=== PATIENT | female | born 1945 | race Caucasian/White ===

== ENCOUNTER → 2017-12-23 | Outpatient (CLI) | payer MEDICARE, OTHER ==
[2014-11-27 04:57] VITALS: BP 168/100
[~2017-12-23] MED LIST: CIPR500T PO; PHEN-318 PO
--- NOTE | 2017-12-23 11:59 | RAD ---
History: Left hip pain, no known injury. M25.552. Comparison: None. Findings: AP following views of the left hip. No acute fracture or dislocation is identified. No significant hip degeneration is seen. Joint space is preserved. Impression: Unremarkable left hip radiographs for age. Electronically signed by: Guido Ellis MD (12/23/2017 11:55 AM) [facility]
== END | disposition home or self-care (01) ==
LOC: PMG 11:22
PROVIDERS: ATTEND Physician Assistant Medical
DX: M25.552 Pain in left hip (principal)
CPT/HCPCS: 73502

== ENCOUNTER 2019-12-12 14:03 | Inpatient (IN) | payer MEDICARE, OTHER ==
[~2019-12-12] VITALS: Ht 165.1 cm; Wt 84.7 kg
--- NOTE | 2019-12-12 14:50 | RAD ---
EXAM: Head CT without contrast. HISTORY: Left-sided facial droop. TECHNIQUE: Computed tomographic images of the head were obtained without contrast. *One or more of the following individualized dose reduction techniques were utilized for this examination: 1. Automated exposure control. 2. Adjustment of the mA and/or kV according to patient size. 3. Use of iterative reconstruction technique. COMPARISON: 08/26/2008. FINDINGS: There is no acute or subacute extra-axial or intraparenchymal hemorrhage. There is no mass effect or midline shift. There is no hydrocephalus. There is a chronic appearing infarct within the right basal ganglia and adjacent frontal white matter. There are bilateral cerebral white matter changes which are likely due to chronic small vessel disease. There is hypodensity likely due to a chronic The visualized portions of the orbits, paranasal sinuses and mastoid air cells are unremarkable. No suspicious calvarial lesion is seen. IMPRESSION: 1. Small chronic appearing infarct within the right basal ganglia and adjacent white matter. 2. Bilateral cerebral white matter changes, most commonly due to chronic small vessel disease. 3. Note is made that MRI is more sensitive for acute infarction. Electronically signed by: Jacque Medina MD (12/12/2019 2:47 PM) [facility]
[2019-12-12 15:28] LABS: BASO % 1 % (0-3); EOS % 1 % (0-3); HEMATOCRIT 39.1 % (36.0-47.0); HEMOGLOBIN 13.4 g/dL (12.0-15.5); LYMPH # 1.3 x10^3/uL (1.0-4.8); LYMPH % 26 % (24-48); MEAN CORPUSCULAR HEMOGLOBIN 33 pg (25-35); MEAN CORPUSCULAR HGB CONC 34 g/dL (31-37); MEAN CORPUSCULAR VOLUME 96 fL (79-100); MONO # 0.4 x10^3/uL (0.0-1.1); MONO % 8 % (0-9); NEUT # 3.3 x10^3uL (1.8-7.7); NEUT % 65 % (31-73); PLATELET COUNT 255 x10^3/uL (140-400); RED CELL DISTRIBUTION WIDTH 13.4 % (11.5-14.5); WHITE BLOOD COUNT 5.1 x10^3/uL (4.0-11.0)
[2019-12-12 15:41] LABS: CALCIUM 8.7 mg/dL (8.5-10.1); CREATININE 0.9 mg/dL (0.6-1.0); GFR 61.7; POTASSIUM 3.5 mmol/L (3.5-5.1)
[2019-12-12 15:42] LABS: BACTERIA,URINE MOD /HPF (0-FEW); BILIRUBIN,URINE NEG (NEG); CLARITY,URINE HAZY; COLOR,URINE YELLOW; GLUCOSE,URINE NEG (NEG); NITRITE,URINE NEG (NEG); RBC,URINE OCC /HPF (0-2); SQUAMOUS EPITHELIAL CELL,UR MANY /LPF; UROBILINOGEN,URINE 0.2 mg/dL (0.2 mg/dL)
[2019-12-12 15:49] LABS: ALBUMIN 3.2 g/dL (3.4-5.0); MAGNESIUM 1.8 mg/dL (1.8-2.4); TOTAL BILIRUBIN 0.3 mg/dL (0.2-1.0); TOTAL PROTEIN 6.4 g/dL (6.4-8.2)
--- NOTE | 2019-12-12 16:13 | EKG ---
[address] [address] Test Date: 2019-12-12 Test Time: 14:22:28 Pat Name: CURTIS ZAMUDIO Department: Room: Gender: F Service Center Manager: : 1945 Requested By: LOGAN DELA CRUZ Order Number: [id number] Reading MD: Anil Nichols Measurements Intervals [place] Rate: 106 P: 42 IL: 154 QRS: -12 QRSD: 100 T: 10 QT: 338 QTc: 451 Interpretive Statements SINUS TACHYCARDIA LEFTWARD AXIS Electronically Signed On 12-14-2019 7:51:53 CDT by Anil Nichols
[2019-12-12] MEDS ORDERED: ASPIRIN CHEWABLE 81 MG TABLET. PO ONE (16:15)
[2019-12-12] MEDS ORDERED: IOHEXOL 350 MG/ML 100 ML VIAL. IV ONE (16:30)
[2019-12-12] MEDS ORDERED: CONTRAST GIVEN MC PRN (16:30)
--- NOTE | 2019-12-12 16:44 | PHYS DOC ---
Past History Past Medical History: Depression, Hypertension Past Surgical History: Hysterectomy, Other Additional Past Surgical Histo: uterine cancer Alcohol Use: Occasionally Drug Use: None General Adult EDM: Chief Complaint: NEURO SYMPTOMS/DEFICITS HPI: HPI: Patient is a 73-year-old female who presented to ER today for evaluation of left-sided weakness, left facial droop. Symptoms started around 11 AM yesterday when she woke up from her sleep. Patient says she woke up, noticed left-sided facial droop and tingling sensation, she had some weakness and numbness in her left upper extremity and left lower extremity. Patient denies any headache, no chest pain, no abdominal pain, no cough or fever. Patient did not seek medical attention then, she was hoping that her symptoms will improve, however today she still has the facial droop and left side weakness so she came here for evaluation. Patient has history of hypertension, no history of heart disease or diabetes. Patient is not on any blood thinner. Patient denies any slow speech, no problem with memory. Review of Systems: Review of Systems: Constitutional: Denies fever or chills Eyes: Denies change in visual acuity HENT: Denies nasal congestion or sore throat Respiratory: Denies cough or shortness of breath Cardiovascular: Denies chest pain or edema GI: Denies abdominal pain, nausea, vomiting, bloody stools or diarrhea : Denies dysuria Musculoskeletal: Denies back pain or joint pain Integument: Denies rash Neurologic: Denies headache, positive for left side facial droop and left side weakness and numbness. Endocrine: Denies polyuria or polydipsia Lymphatic: Denies swollen glands Psychiatric: Denies depression or anxiety Heart Score: Risk Factors: Risk Factors: DM, Current or recent (<one month) smoker, HTN, HLP, family history of CAD, obesity. Risk Scores: Score 0 - 3: 2.5% MACE over next 6 weeks - Discharge Home Score 4 - 6: 20.3% MACE over next 6 weeks - Admit for Clinical Observation Score 7 - 10: 72.7% MACE over next 6 weeks - Early Invasive Strategies Current Medications: Current Meds: Current Medications Medications (Trade) Dose Ordered Sig/Rohan Start Time Stop Time Status Last Admin Dose Admin Aspirin (Aspirin Chewable) 324 mg 1X ONCE 12/12/19 16:15 12/12/19 16:16 DC 12/12/19 16:40 324 MG Info (Do NOT chart on this entry -- for MONITORING) 1 each PRN DAILY PRN 12/12/19 16:30 12/14/19 16:29 Iohexol (Omnipaque 350 Mg/ml) 100 ml 1X ONCE 12/12/19 16:30 12/12/19 16:31 DC Ondansetron HCl (Zofran) 4 mg PRN Q4HRS PRN 12/12/19 16:45 12/13/19 16:44 Allergies: Allergies: Allergies Coded Allergies Type Severity Reaction Last Updated Verified dextromethorphan Allergy Unknown 11/27/14 No diphenhydramine Allergy Unknown 11/27/14 No guaifenesin Allergy Unknown 11/27/14 No phenylephrine Allergy Unknown 11/27/14 No pseudoephedrine Allergy Unknown 11/27/14 No Physical Exam: PE: Constitutional: Well developed, well nourished, no acute distress, non-toxic appearance. [] HENT: Normocephalic, atraumatic, bilateral external ears normal, oropharynx moist, no oral exudates, nose normal. [] Eyes: PERRLA, EOMI, conjunctiva normal, no discharge. [] Neck: Normal range of motion, no tenderness, supple, no stridor. [] Cardiovascular:Heart rate regular rhythm, no murmur [] Lungs & Thorax: Bilateral breath sounds clear to auscultation [] Abdomen: Bowel sounds normal, soft, no tenderness, no masses, no pulsatile masses. [] Skin: Warm, dry, no erythema, no rash. [] Back: No tenderness, no CVA tenderness. [] Extremities: No tenderness, no cyanosis, no clubbing, ROM intact, no edema. [] Neurologic: Alert and oriented X 3, clear speech, obvious left-sided facial droop, left upper extremity is weaker than right upper extremity. Psychologic: Affect normal, judgement normal, mood normal. [] Current Patient Data: Labs: Laboratory Tests Test 12/12/19 14:54 12/12/19 15:09 Urine Collection Type Unknown Urine Color Yellow Urine Clarity Hazy Urine pH 5.0 Urine Specific [place] 1.020 Urine Protein Neg (NEG-TRACE) Urine Glucose (UA) Neg mg/dL (NEG) Urine Ketones (Stick) Neg mg/dL (NEG) Urine Blood Trace (NEG) Urine Nitrite Neg (NEG) Urine Bilirubin Neg (NEG) Urine Urobilinogen Dipstick 0.2 mg/dL (0.2 mg/dL) Urine Leukocyte Esterase Large (NEG) Urine RBC Occ /HPF (0-2) Urine WBC 5-10 /HPF (0-4) Urine Squamous Epithelial Cells Many /LPF Urine Bacteria Mod /HPF (0-FEW) White Blood Count 5.1 x10^3/uL (4.0-11.0) Red Blood Count 4.10 x10^6/uL (3.50-5.40) Hemoglobin 13.4 g/dL (12.0-15.5) Hematocrit 39.1 % (36.0-47.0) Mean Corpuscular Volume 96 fL (79-100) Mean Corpuscular Hemoglobin 33 pg (25-35) Mean Corpuscular Hemoglobin Concent 34 g/dL (31-37) Red Cell Distribution Width 13.4 % (11.5-14.5) Platelet Count 255 x10^3/uL (140-400) Neutrophils (%) (Auto) 65 % (31-73) Lymphocytes (%) (Auto) 26 % (24-48) Monocytes (%) (Auto) 8 % (0-9) Eosinophils (%) (Auto) 1 % (0-3) Basophils (%) (Auto) 1 % (0-3) Neutrophils # (Auto) 3.3 x10^3uL (1.8-7.7) Lymphocytes # (Auto) 1.3 x10^3/uL (1.0-4.8) Monocytes # (Auto) 0.4 x10^3/uL (0.0-1.1) Eosinophils # (Auto) 0.0 x10^3/uL (0.0-0.7) Basophils # (Auto) 0.0 x10^3/uL (0.0-0.2) Prothrombin Time 9.4 SEC (9.4-11.4) Prothrombin Time INR 0.9 (0.9-1.1) Activated Partial Thromboplast Time 21 SEC (23-33) L Sodium Level 140 mmol/L (136-145) Potassium Level 3.5 mmol/L (3.5-5.1) Chloride Level 103 mmol/L (98-107) Carbon Dioxide Level 31 mmol/L (21-32) Anion Gap 6 (6-14) Blood Urea Nitrogen 32 mg/dL (7-20) H Creatinine 0.9 mg/dL (0.6-1.0) Estimated GFR (Cockcroft-Gault) 61.7 BUN/Creatinine Ratio 36 (6-20) H Glucose Level 99 mg/dL (70-99) Calcium Level 8.7 mg/dL (8.5-10.1) Magnesium Level 1.8 mg/dL (1.8-2.4) Total Bilirubin 0.3 mg/dL (0.2-1.0) Aspartate Amino Transferase (AST) 18 U/L (15-37) Alanine Aminotransferase (ALT) 23 U/L (14-59) Alkaline Phosphatase 106 U/L (46-116) Troponin I Quantitative < 0.017 ng/mL (0-0.055) BH-Vvf-C-Type Natriuretic Peptide 73 pg/mL (0-124) Total Protein 6.4 g/dL (6.4-8.2) Albumin 3.2 g/dL (3.4-5.0) L Albumin/Globulin Ratio 1.0 (1.0-1.7) Vital Signs: Vital Signs Date Time Temp Pulse Resp B/P (MAP) Pulse Ox O2 Delivery O2 Flow Rate FiO2 12/12/19 16:09 88 22 162/75 (104) 98 Room Air 12/12/19 14:21 98.4 EKG: EKG: EKG was done at 1422, heart rate 106 bpm, sinus tachycardia, left axis, no ST segment elevation. EKG was read by this physician. Radiology/Procedures: Radiology/Procedures: [][place] [address] IMAGING REPORT Signed PATIENT: CURTIS ZAMUDIO ACCOUNT: [id number] : 1945 LOCATION: ER AGE: 73 SEX: F EXAM STATUS: REG ER ORD. PHYSICIAN: LOGAN DELA CRUZ DO REASON: left side facial droop, HTN PROCEDURE: CT HEAD WO CONTRAST EXAM: Head CT without contrast. HISTORY: Left-sided facial droop. TECHNIQUE: Computed tomographic images of the head were obtained without contrast. *One or more of the following individualized dose reduction techniques were utilized for this examination: 1. Automated exposure control. 2. Adjustment of the mA and/or kV according to patient size. 3. Use of iterative reconstruction technique. COMPARISON: 08/26/2008. FINDINGS: There is no acute or subacute extra-axial or intraparenchymal hemorrhage. There is no mass effect or midline shift. There is no hydrocephalus. There is a chronic appearing infarct within the right basal ganglia and adjacent frontal white matter. There are bilateral cerebral white matter changes which are likely due to chronic small vessel disease. There is hypodensity likely due to a chronic The visualized portions of the orbits, paranasal sinuses and mastoid air cells are unremarkable. No suspicious calvarial lesion is seen. IMPRESSION: 1. Small chronic appearing infarct within the right basal ganglia and adjacent white matter. 2. Bilateral cerebral white matter changes, most commonly due to chronic small vessel disease. 3. Note is made that MRI is more sensitive for acute infarction. Electronically signed by: Jacque Frank MD (12/12/2019 2:47 PM) [facility] DICTATED AND SIGNED BY: JACQUE FRANK MD DATE: 12/12/19 1440 CC: LOGAN DELA CRUZ DO; JAYLEN BECK ~ Course & Med Decision Making: Course & Med Decision Making Pertinent Labs and Imaging studies reviewed. (See chart for details) Patient is a 73-year-old female who presented to ER today due to left-sided weakness with left-sided facial droop, CT scan did not show an acute bleeding or infarction. However she continued to have the numbness and facial droop, patient has CVA. She is not a candidate for TPA. Discussed with neurologist construction analyst, Dr. Dubon who recommended oral aspirin, admit patient to hospitalist here, get CTA OF HEAD AND NECK. NO IV TPA CANDIDATE. Discussed with Dr. Corrales who agreed to admit patient. Patient will be admitted to hospital for further evaluation treatment. Patient is amenable to plan of care. Dragon Disclaimer: Dragon Disclaimer: This electronic medical record was generated, in whole or in part, using a voice recognition dictation system. Departure Departure: Impression: Primary Impression: Acute CVA (cerebrovascular accident) Disposition: ADMITTED INPATIENT Admitting Physician: Oly Corrales Condition: STABLE Referrals: KIRAN,JAYLEN M PA (PCP) NIHSS - ED NIH Stroke Scale: NIH Stroke Scale Response (Comments) Value Level of Consciousness: 0 Alert/Responsive 0 LOC Questions: 0 Answers both correctly 0 LOC Commands: 0 Performs both tasks 0 Best Gaze: 0 Normal 0 Visual: 0 No visual loss 0 Facial Palsy: 1 Minor paralysis 1 Motor - Left Arm 1 Drifts, but can hold 1 Motor - Right Arm 0 No drift 0 Motor - Left Leg 0 No drift 0 Motor: Right Leg 0 No drift 0 Limb Ataxia: 0 Absent 0 Sensory: 0 No loss 0 Best Language: 0 Normal 0 Dysathria: 0 Normal 0 Extinction and Inattention: 0 Normal 0 Total 2 LOGAN DELA CRUZ DO December 12, 2019 16:44
[2019-12-12] MEDS ORDERED: ONDANSETRON PF 4 MG/2 ML VIAL. IVP PRN ×2 (16:45→18:15)
[2019-12-12] MEDS ORDERED: VALS1TAB22 PO (17:06)
[2019-12-12] MEDS ORDERED: DULO60CA6 PO (17:06)
--- NOTE | 2019-12-12 17:57 | RAD ---
EXAM: CT ANGIOGRAPHY HEAD AND NECK DATE: 12/12/2019 4:14 PM INDICATION: Facial droop TECHNIQUE: CTA angiogram of the head and neck was obtained after IV bolus administration of 100 cc of Omnipaque 350. The images were sent to workstation and multiplanar reconstructions were obtained. Multiplanar reconstruction images to include MIP and 3-D reconstruction images are submitted. One or more of the following dose reduction techniques were utilized: Automated exposure control (AEC), Adjustment of mA and/or kV according to patient size, Use of iterative reconstruction technique such as ASiR, CT scan done according to ALARA and image gently/image wisely COMPARISON: Noncontrast CT head done earlier the same day. FINDINGS: CTA Head: The visualized distal internal carotid arteries, anterior and middle cerebral arteries are patent and normal caliber. The distal vertebral arteries, basilar artery, and posterior cerebral arteries are patent and normal caliber. No aneurysm or arteriovenous malformation is seen. CTA Neck: Right carotid: The right common carotid artery is patent and normal caliber. Mild atherosclerosis of the carotid bifurcation. No stenosis of the right internal carotid artery per NASCET criteria. The right external carotid artery is patent. Left carotid: The left common carotid artery is patent and normal caliber. Mild atherosclerosis of the carotid bifurcation. No stenosis of the left internal carotid artery per NASCET criteria. Atherosclerotic narrowing at the origin of the external carotid artery. Right vertebral: The right vertebral artery is patent and normal caliber. Left vertebral: The left vertebral artery is patent and normal caliber. The visualized portions of the aortic arch are normal. The origins of the brachiocephalic and subclavian arteries are normal. No cervical lymphadenopathy. The thyroid gland is normal. The parotid and submandibular glands are normal. Patulous fluid-filled esophagus. Mild multilevel degenerative disc height loss. Multilevel disc protrusions and marginal osteophytes results in multilevel spinal canal stenosis. Multilevel uncovertebral and facet arthrosis with multilevel neural foraminal narrowing. The visualized portions of the lungs are clear. IMPRESSION: 1. No large vessel occlusion. 2. No stenosis of the cervical carotid or vertebral arteries. 3. Patulous fluid-filled esophagus PQRS Compliance Statement - Stenosis calculations for CT, MR and conventional angiography are based upon measurement of the distal ICA diameter in accordance with the NASCET methodology. Electronically signed by: Ronnie Fonseca MD (12/12/2019 5:55 PM) [facility]
[2019-12-12 18:01] VITALS: BP 143/82
[2019-12-12] MEDS ORDERED: diphenhydrAMINE HCL 25 MG CAPSULE PO PRN (18:15)
[2019-12-12 19:22] VITALS: BP 142/82
[2019-12-12 22:00] VITALS: BP 138/82
--- NOTE | 2019-12-13 01:01 | CONS ---
DATE OF CONSULTATION: 12/12/2019 NEUROLOGY CONSULTATION REFERRING PHYSICIAN: Dr. Corrales. REASON FOR CONSULTATION: Rule out stroke versus TIA. HISTORY OF PRESENT ILLNESS: This is a 73-year-old right-handed female who was admitted through Emergency Room after she presented with chief complaints of left-sided weakness, numbness, and paresthesia according to the symptoms started at 11:00 a.m. yesterday. She stated she tried to weight hopefully the symptoms will resolve spontaneously, but because of continuous symptoms, she came to the Emergency Room for further evaluation. I was contacted by ER physician. He told me that the patient had at present, left facial drooping with numbness and paresthesia of the left upper and lower extremities. The patient denies chest pain, shortness of breath or palpitation, dysarthria, dysphagia or dizziness. However, the systolic blood pressure on admission was 161/72. The patient stated her diastolic blood pressure was above 130 a few days ago. She was placed on a blood pressure medicine at that time. Initial nonenhanced head CT scan revealed evidence of chronic small vessel ischemic changes. CT angio of the head and neck revealed no evidence of large vessel occlusion or stenosis of the carotids. The patient was placed on aspirin 324 mg p.o. daily and was admitted for further observation. PAST MEDICAL HISTORY: Significant for hypertension, history of uterine cancer diagnosed in 2019, urinary tract infections, depressions. PAST SURGICAL HISTORY: Positive for hysterectomy, knee surgeries. SOCIAL HISTORY: The patient denies smoking, alcohol drinking, or illicit drug use. CURRENT HOME MEDICATIONS: Cymbalta 60 mg daily, Pyridium 200 mg t.i.d. and Diovan, unknown dose 1 tablet daily. FAMILY HISTORY: Positive for stroke, otherwise unremarkable. ALLERGIES: DEXTROMETHORPHAN, BENADRYL, GUANFACINE, PHENYLEPHRINE AND SEROPHENE. REVIEW OF SYSTEMS: A 14-point review of system was performed as mentioned above in history of present illness, otherwise unremarkable. PHYSICAL EXAMINATION: GENERAL: Well-developed, well-nourished female, not in acute distress. She weighs 84.8 kilos. VITAL SIGNS: Blood pressure 138/82, respiratory rate 18, pulse is 96 and regular, oxygen saturation is 96% on room air, temperature 99.3. HEENT: Normocephalic, atraumatic, otherwise unremarkable. NECK: Supple. Negative for carotid bruit, lymphadenopathy or thyromegaly. LUNGS: Clear to A and P. CARDIOVASCULAR: Regular rate and rhythm, normal S1, S2. There is no S3, S4 or murmurs. ABDOMEN: Soft. Bowel sounds positive. EXTREMITIES: Negative for cyanosis, clubbing or edema. NEUROLOGICAL EXAM: Mental Status: The patient is alert and oriented x 3. Speech is fluent. There is no language dysfunction. Memory, judgment, and abstract thinking are normal. The patient denies hallucination or delusion. CRANIAL NERVES: Visual alaniz are full. The pupils are reactive to light and accommodation. The extraocular movements are intact. There is no nystagmus. There is no facial motor or sensory deficit. Hearing is intact bilaterally. The palate is elevated symmetrically. Sternocleidomastoid muscles are powerful bilaterally. The patient protrudes her tongue in the midline without fasciculation or atrophy. MOTOR: No focal muscle bulk was seen. The tone is normal. The strength is 5/5 throughout. SENSORY EXAMINATION: Normal pinprick, light touch, vibratory and position senses. DEEP TENDON REFLEXES: Symmetric and active without pathologic responses. GAIT AND COORDINATION: Normal. LABORATORY DATA: CBC revealed white blood cells of 5.1 thousand, hemoglobin 13.4, hematocrit 39.1, platelet count 222,000. Chemistry revealed sodium of 140, potassium 3.5, chloride 103, CO2 31, BUN 32, creatinine 0.9, glucose is 99. Liver enzymes are normal. Troponin level is normal. Urinalysis, large urinary leukocyte esterase with white blood cells of 5-10. Coagulation is normal. DIAGNOSTIC DATA: Head CT scan and CT angio of the neck and head as described above in the history of present illness. IMPRESSION: 1. Possible transient ischemic attack with normal neurological examination presented with dense left-sided hemisensory deficit -- resolved. 2. Positive CT scan and CT angio consistent with chronic small vessel ischemic changes and chronic right basal ganglia infarct. 3. Hypertension may have to precipitate current symptoms. 4. Chronic urinary tract infection with possible continuous urinary tract infections. RECOMMENDATIONS: 1. Continue with aspirin at 81 mg p.o. daily. 2. Treat the underlying urinary tract infections. 3. Correct hypertension slowly. M Blade FOY MD DR: TREASURE/leif JOB#: [id number] / [id number]
[2019-12-13 01:44] LABS: BACTERIA,URINE FEW /HPF (0-FEW); BILIRUBIN,URINE NEG (NEG); CLARITY,URINE CLEAR; COLOR,URINE YELLOW; GLUCOSE,URINE NEG (NEG); NITRITE,URINE NEG (NEG); RBC,URINE RARE /HPF (0-2); UROBILINOGEN,URINE 0.2 mg/dL (0.2 mg/dL)
[2019-12-13 01:45] LABS: SQUAMOUS EPITHELIAL CELL,UR OCC /LPF
[2019-12-13 05:32] VITALS: BP_SYST 124; BP_SYST 152; BP_DIAS 63; BP_DIAS 84
[2019-12-13 06:39] LABS: HEMATOCRIT 38.4 % (36.0-47.0); HEMOGLOBIN 12.9 g/dL (12.0-15.5); RED BLOOD COUNT 4.03 x10^6/uL (3.50-5.40); WHITE BLOOD COUNT 4.7 x10^3/uL (4.0-11.0)
[2019-12-13 06:59] LABS: ALBUMIN 3.1 g/dL (3.4-5.0); ALBUMIN/GLOBULIN RATIO 0.9 (1.0-1.7); CALCIUM 8.6 mg/dL (8.5-10.1); CREATININE 0.8 mg/dL (0.6-1.0); GFR 70.7; POTASSIUM 3.3 mmol/L (3.5-5.1); TOTAL BILIRUBIN 0.5 mg/dL (0.2-1.0); TOTAL PROTEIN 6.5 g/dL (6.4-8.2)
[2019-12-13] MEDS ORDERED: POTASSIUM CHLORIDE 20 MEQ TABLET.ER. PO ONE (07:45)
[2019-12-13] MEDS ORDERED: ASPIRIN CHEWABLE 81 MG TABLET. PO SCH (08:00)
[2019-12-13 11:00] VITALS: BP 119/76
--- NOTE | 2019-12-13 11:39 | PN ---
DATE: 12/13/2019 SUBJECTIVE: The patient denies any new medical or neurological complaints as she slept well. She denies numbness or paresthesia of the left upper and lower extremities, headaches, chest pain, shortness of breath or palpitation. The patient also denies any recent urinary problems. OBJECTIVE: GENERAL: Well-developed, well-nourished female, not in acute distress. VITAL SIGNS: Blood pressure 152/84, respiratory rate 18, pulse is 79, oxygen saturation is 100%, temperature is 97.4. HEENT: Normocephalic, atraumatic, otherwise unremarkable. NECK: Supple. Negative for carotid bruit, lymphadenopathy or thyromegaly. LUNGS: Clear to A and P. CARDIOVASCULAR: Regular rate and rhythm, normal S1, S2. There is no S3, S4 or murmur. ABDOMEN: Soft. Bowel sounds positive. EXTREMITIES: Negative for cyanosis, clubbing or edema. NEUROLOGICAL EXAM: Mental Status: The patient is alert and oriented x 3. Speech is fluent. There is no language dysfunction. Memory, judgment, and abstracting thinking are normal. Cranial nerves 2-12 are intact. Motor examination: No focal muscle bulk was seen. The tone was normal. The strength was 5/5 throughout. Sensory examination revealed normal pinprick, light touch, vibratory and position senses. Deep tendon reflexes were symmetric and active without pathology responses. Gait and coordination are normal. LABORATORY DATA: CBC revealed white blood cells of 4.7 thousand, hemoglobin 12.9, hematocrit 38.4, platelet count 227,000. Chemistry revealed sodium of 140, potassium 3.3, chloride 103, CO2 of 30, BUN 25, creatinine 0.8, calcium is 8.6. Lipid profile revealed elevated LDL at 113. Urinalysis revealed no evidence of infections. IMPRESSION: 1. Possible transient ischemic attack -- resolved. 2. Hypertension. 3. Dehydration and mild hypokalemia. 4. Mild elevated LDL. RECOMMENDATIONS: 1. Continue with current management, the patient may need to be on antihypertensive medication for long-term. 2. Continue with aspirin 81 mg daily. 3. Follow up with Dr. Foy after 2 weeks from discharge. M Blade FOY MD DR: TREASURE/leif JOB#: [id number] / [id number]
[2019-12-13] MEDS ORDERED: MAG HYDROX/AL HYDROX/SIMETH 30 ML ORAL.SUSP PO PRN (11:45)
[2019-12-13] MEDS ORDERED: CALCIUM CARBONATE 500 MG TAB.CHEW PO PRN (11:45)
--- NOTE | 2019-12-13 14:30 | DS ---
DATE OF DISCHARGE: 12/13/2019 HOSPITAL COURSE: The patient is a 73-year-old female patient who came yesterday complaining of left-sided facial droop and left-sided tingling, numbness and weakness. She was evaluated in the Emergency Room. The CT scan showed that she has old right basal ganglia infarct and also bilateral cerebral white matter changes most commonly due to chronic small vessel disease. The patient was admitted to [facility]. She came almost a day after the onset of her symptoms. We did consult Dr. Dubon who apparently ordered a CT angio of the head and neck. No large vessel occlusion. No stenosis of the cervical, carotid or vertebral arteries. She has patulous fluid filled esophagus. When I saw her this afternoon, her symptoms have completely resolved. She has had no facial droop, no tingling or numbness and no weakness. She was given aspirin in the Emergency Room. With the plan is to discharge her home to continue on a baby aspirin and also we will cut down her hydrochlorothiazide to 160/12.5 mg. FINAL DISCHARGE DIAGNOSES: Transient ischemic attack with dense left-sided hemisensory deficit, resolved. Her CT scan and CT angio consistent with chronic small vessel ischemic disease and the right basal ganglia infarct, hypertension and chronic urinary tract infection. LIMA CUI MD DR: HIEN/leif JOB#: [id number] / [id number]
--- NOTE | 2019-12-13 15:30 | HP ---
ADMIT DATE: 12/12/2019 HISTORY OF PRESENT ILLNESS: The patient is a 73-year-old female patient who came to the Emergency Room complaining of left-sided weakness, left facial droop. Symptoms started around 11:00 a.m. the day before when she woke up from her sleep. The patient stated that she woke up noticing left-sided facial droop and tingling sensation. She had some weakness and numbness in her left upper extremity and left lower extremity. The patient denies any headache. No chest pain, no abdominal pain. No cough or fever. She did not seek medical attention then. She was hoping that her symptoms will improve; however, as the symptom continued with left-sided facial droop and left-sided weakness, she came to the Emergency Room for further evaluation. On questioning her further, she said that she was started on her pressure medications. She was actually on valsartan/hydrochlorothiazide 320/25, since she has felt dizzy for 2 days prior to her admission. She denied on arrival any trouble speaking or swallowing. She was evaluated in the Emergency Room. Her lab work is unremarkable and her CT scan of the head showed small chronic appearing infarct in the right basal ganglia and adjacent white matter. She has bilateral cerebral white matter changes most commonly due to chronic small vessel disease and given that she continued to have tingling and numbness, we contacted Dr. Dubon and given that she is outside the window for TPA, a decision was made to admit her to [facility] to check her fasting lipid profile and consult Dr. Dubon for further evaluation and treatment. PAST MEDICAL HISTORY: Significant for hypertension, uterine cancer treated with total abdominal hysterectomy, bilateral salpingo-oophorectomy as well as chemotherapy and radiation treatment in 1999, hypertension and morbid obesity. PAST SURGICAL HISTORY: Significant for ventral hernia repair x 2, left knee arthroscopic surgery, total abdominal hysterectomy, bilateral salpingo-oophorectomy, Lap Band surgery. She also underwent esophagogastroduodenoscopy as well as colonoscopy. ALLERGIES: She is allergic to DEXTROMETHORPHAN, DIPHENHYDRAMINE, GUAIFENESIN, PHENYLEPHRINE and PSEUDOEPHEDRINE. MEDICATIONS: She is currently on the following medications: She is on valsartan/hydrochlorothiazide 320/25 mg once a day, duloxetine 60 mg once a day. FAMILY HISTORY: She has 1 older sister who in a motor vehicle accident. Father at age of 93 of old age. Mother at age of 75 complication of hypertension and heart failure. SOCIAL HISTORY: She is . Her granddaughter lives with her. She does not smoke, drink alcohol or use any recreational drugs. She has 2 sons. 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 She is currently retired, but fairly independent. REVIEW OF SYSTEMS: The patient denied any blurring of vision, cataract, glaucoma or macular degeneration. Denied any earache, tinnitus or sensorineural deafness. Denied any nosebleeds, stuffy nose or postnasal drip. Denied any sore throat, sore tongue, toothache, hoarseness of voice or difficulty swallowing. Denied any nausea, vomiting, diarrhea or constipation. Denied any hematemesis, melena, hematochezia. Denied any dysuria, frequency or hematuria. She use to have chest pain that eventually found to be due to acid reflux. Denied any orthopnea or paroxysmal nocturnal dyspnea. Denied any cough, phlegm or hemoptysis. Did complain of dizziness because of her blood pressure medication. She actually has lost about 100 pounds after her Lap Band surgery. PHYSICAL EXAMINATION: GENERAL: On arrival to the Emergency Room, she looked well and was clearly in no apparent respiratory distress. She was somewhat pale, but no jaundice, cyanosis or thyromegaly. No jugular venous distention. No limb edema. VITAL SIGNS: Her heart rate was 115, blood pressure was 161/72, temperature was 98.4, respiratory rate was 18 and oxygen saturation was 99% on room air. HEAD, EYES, EARS, NOSE AND THROAT: Normocephalic, atraumatic. NECK: Supple. HEART: Showed normal first and second heart sounds. No gallop, rub or murmur. CHEST: Clear to auscultation. No crepitation or rhonchi. ABDOMEN: Distended, soft, nontender. NEUROLOGIC: She was awake, alert, oriented to time, place and person. She has obvious left-sided facial droop. Her left upper extremity is weaker than right upper extremity; however, her affect, judgment and mood were normal. LABORATORY DATA: She had had lab work done, which showed a white cell count of 5000, hemoglobin 13, hematocrit 39, MCV 96, and platelet count 255,000. Her chemistry showed a serum sodium 140, potassium 3.5, chloride 103, bicarbonate 31, anion gap of 6, BUN 32, creatinine 0.9, estimated GFR was 62 mL per minute. Her glucose was 99, calcium was 8.7, magnesium was 1.8. Total bilirubin, AST, ALT, alkaline phosphatase were normal. Total protein was 6.4, albumin was 3.2. Her prothrombin time, INR and aPTT were normal and urinalysis showed the urine was yellow, hazy with a pH of 5, specific gravity 1.020. The urine was negative for protein, glucose, ketones. There was trace of blood, negative for nitrite and bilirubin. There was large amount of leukocyte esterase, occasional rbc's, 5-10 wbc's and moderate amount of bacteria. She has had a CT scan of the head, which basically showed the patient has small chronic appearing infarct within the right basal ganglia and adjacent white matter, ____ bilateral cerebral white matter changes most commonly due to chronic small vessel disease. The patient was admitted. She was given an aspirin and her potassium was low, she was given 40 mEq of potassium chloride and we consulted Dr. Dubon for further evaluation and treatment. ADMISSION DIAGNOSIS: Probably left-sided hemisensory deficit. She obviously has hypertension. LIMA CUI MD DR: HIEN/leif JOB#: [id number] / [id number]
== END 2019-12-13 14:20 | disposition home or self-care (01) | DRG 69 ==
LOC: ER 14:03 → 1 SOUTH 16:30
PROVIDERS: ADMIT Internal Medicine; ATTEND Internal Medicine
DX: G45.9 Transient cerebral ischemic attack, unspecified (principal); N39.0 Urinary tract infection, site not specified; I73.9 Peripheral vascular disease, unspecified; E86.0 Dehydration; E87.6 Hypokalemia; I10 Essential (primary) hypertension; R29.810 Facial weakness; Z79.899 Other long term (current) drug therapy; Z82.3 Family history of stroke; Z82.49 Family history of ischemic heart disease and other diseases of the circulatory system; Z85.42 Personal history of malignant neoplasm of other parts of uterus; Z90.710 Acquired absence of both cervix and uterus; E66.01 Morbid (severe) obesity due to excess calories; F32.9 Major depressive disorder, single episode, unspecified; Z88.8 Allergy status to other drugs, medicaments and biological substances; Z90.722 Acquired absence of ovaries, bilateral; Z92.21 Personal history of antineoplastic chemotherapy; Z92.3 Personal history of irradiation
CPT/HCPCS: 36415; 70450; 70496; 70498; 80053; 80061; 81001; 83735; 83880; 84484; 85025; 85027; 85610; 85730; 87086; 93005; 96374; 99285; Q9967

== ENCOUNTER 2021-04-28 08:34 | Emergency (ER) | payer MEDICARE, OTHER ==
[~2021-04-28] VITALS: Ht 165.1 cm; Wt 77.3 kg
[~2021-04-28 08:34] MED LIST changes: -CIPR500T PO; +CIPR500T2 PO; +DULO60CA6 PO; +VALS1TAB23 PO
--- NOTE | 2021-04-28 09:07 | PHYS DOC ---
Past History Past Medical History: Anxiety, Depression, Hypertension Past Surgical History: Hysterectomy, Other Additional Past Surgical Histo: uterine cancer, left knee, hernia Smoking: Non-smoker Alcohol Use: Rarely Drug Use: None General Adult EDM: Chief Complaint: DIARRHEA HPI: HPI: 74-year-old female presents with report of diarrhea x2 weeks. Patient reports initially started as very watery but has since started have more loose stools. Patient reports she went to go see her primary care provider Jaylen Chávez [employer] today for this. Reports upon getting to the office she was acting "out of it ". There was concern for possible near syncope as patient did report some associated dizziness. An EKG was obtained up in the office which they reported was abnormal. Denies chest pain or headache. Denies or fever chills. Denies known sick contact. Denies known exposure to COVID-19. Patient does report receiving the Moderna vaccinations x2. Review of Systems: Review of Systems: Constitutional: Denies fever or chills Eyes: Denies redness or eye pain HENT: Denies nasal congestion or sore throat Respiratory: Denies cough or shortness of breath Cardiovascular: Denies chest pain or palpitations GI: Denies abdominal pain, nausea, or vomiting; reports diarrhea : Denies dysuria or hematuria Musculoskeletal: Denies back pain or joint pain Integument: Denies rash or skin lesions Neurologic: Denies headache, focal weakness or sensory changes; reports dizziness Complete systems were reviewed and found to be within normal limits, except as documented in this note. Allergies: Allergies: Allergies Coded Allergies Type Severity Reaction Last Updated Verified dextromethorphan Allergy Unknown 11/27/14 No diphenhydramine Allergy Unknown 11/27/14 No guaifenesin Allergy Unknown 11/27/14 No phenylephrine Allergy Unknown 11/27/14 No pseudoephedrine Allergy Unknown 11/27/14 No Physical Exam: PE: Constitutional: Well developed, well nourished, no acute distress, non-toxic appearance HENT: Normocephalic, atraumatic Eyes: PERRL, EOMI, conjunctiva normal, no discharge, no nystagmus Neck: Normal range of motion, no tenderness, supple Lungs & Thorax: No respiratory distress, equal chest rise and fall Abdomen: Soft, no tenderness, no guarding/rebound tenderness/distention Skin: Warm, dry, no erythema, no rash Back: No tenderness, no CVA tenderness Extremities: No tenderness, ROM intact, no edema Neurologic: Alert and oriented X 3, normal motor function, normal sensory function, no focal deficits noted Psychologic: Affect normal, judgment normal EKG: EKG: @0857 Sinus tachycardia at 117bpm, baseline artifact, nonspecific t wave inversion III, occasional PVC, NO ST elevation, QRS 92ms, QT/QTc 342/482ms Radiology/Procedures: Radiology/Procedures: [] Heart Score: C/O Chest Pain: N/A Course & Med Decision Making: Course & Med Decision Making Pertinent Lab studies reviewed. (See chart for details) Patient presents with report of diarrhea x2 weeks. Patient does sound like diarrhea has started to improve. Patient was seen by her PCP today in the office with concern for possible near syncopal episode. There was an EKG that was obtained that was concerning to the provider. EKG here today is sinus tachycardia with occasional PVC. No ST elevation noted. QRS and QT/QTc within normal limits. Labs obtained and posted to chart. Hypokalemia and hypomagnesemia addressed. UA with signs of infection. Empiric antibiotic initiated. Urine culture pending. IV fluid hydration given. Orthostatic vital signs stable and without symptoms. Patient stable for discharge with outpatient follow-up with PCP. Discussed findings and plan with patient, who acknowledges understanding and agreement. Lana Disclaimer: Lana Disclaimer: This electronic medical record was generated, in whole or in part, using a voice recognition dictation system. Departure Departure: Impression: Primary Impression: Near syncope Additional Impressions: Diarrhea Qualified Codes: R19.7 - Diarrhea, unspecified Urinary tract infection Qualified Codes: N30.00 - Acute cystitis without hematuria Hypomagnesemia Hypokalemia Disposition: HOME / SELF CARE / HOMELESS Condition: STABLE Referrals: JAYLEN CHÁVEZ (PCP) Patient Instructions: Diarrhea, [id number], Diet for Diarrhea, Adult, Hypokalemia, Hypomagnesemia, Near-Syncope, [id number], Potassium Content of Foods, Urinary Tract Infection, [id number] Scripts Cephalexin (CEPHALEXIN) 500 Mg Tablet 1 TAB PO TID for UTI for 7 Days, #21 TAB Prov: RUDI PRUETT DO 04/28/21 RUDI PRUETT DO Apr 28, 2021 09:07
[2021-04-28] MEDS ORDERED: IV NORMAL SALINE 1,000ML 1,000 ML IV ONE (09:15)
[2021-04-28 09:51] LABS: BASO % 0 % (0-3); EOS # 0.1 x10^3/uL (0.0-0.7); EOS % 1 % (0-3); HEMATOCRIT 36.1 % (36.0-47.0); HEMOGLOBIN 12.2 g/dL (12.0-15.5); LYMPH % 14 % (24-48); MEAN CORPUSCULAR HEMOGLOBIN 33 pg (25-35); MEAN CORPUSCULAR HGB CONC 34 g/dL (31-37); MEAN CORPUSCULAR VOLUME 96 fL (79-100); MONO # 0.8 x10^3/uL (0.0-1.1); MONO % 10 % (0-9); NEUT # 5.6 x10^3uL (1.8-7.7); NEUT % 74 % (31-73); PLATELET COUNT 229 x10^3/uL (140-400); RED BLOOD COUNT 3.75 x10^6/uL (3.50-5.40); RED CELL DISTRIBUTION WIDTH 13.2 % (11.5-14.5); WHITE BLOOD COUNT 7.6 x10^3/uL (4.0-11.0)
[2021-04-28 09:58] LABS: ANION GAP 14 (6-14); BLOOD UREA NITROGEN 34 mg/dL (7-20); BUN/CREATININE RATIO 24 (6-20); CALCIUM 8.7 mg/dL (8.5-10.1); CARBON DIOXIDE 22 mmol/L (21-32); CHLORIDE 102 mmol/L (98-107); CREATININE 1.4 mg/dL (0.6-1.0); GFR 36.9; GLUCOSE 106 mg/dL (70-99); POTASSIUM 3.1 mmol/L (3.5-5.1); SODIUM 138 mmol/L (136-145)
[2021-04-28 10:14] LABS: ALBUMIN 3.2 g/dL (3.4-5.0); ALBUMIN/GLOBULIN RATIO 0.9 (1.0-1.7); ALK PHOS 90 U/L (46-116); ALT (SGPT) 14 U/L (14-59); AST (SGOT) 11 U/L (15-37); LIPASE 27 U/L (73-393); MAGNESIUM 1.5 mg/dL (1.8-2.4); TOTAL BILIRUBIN 0.8 mg/dL (0.2-1.0); TOTAL PROTEIN 6.6 g/dL (6.4-8.2)
[2021-04-28 10:26] LABS: BILIRUBIN,URINE NEG (NEG); CLARITY,URINE HAZY; COLOR,URINE YELLOW; GLUCOSE,URINE NEG (NEG); NITRITE,URINE POS (NEG); UROBILINOGEN,URINE 0.2 mg/dL (0.2 mg/dL)
[2021-04-28 10:30] VITALS: BP 107/61
[2021-04-28 10:34] LABS: BACTERIA,URINE MANY /HPF (0-FEW); RBC,URINE 0 /HPF (0-2)
[2021-04-28 10:35] LABS: HYALINE CASTS, URINE MOD /HPF; SQUAMOUS EPITHELIAL CELL,UR MOD /LPF
[2021-04-28] MEDS ORDERED: POTASSIUM CHLORIDE 20 MEQ TABLET.ER. PO ONE (10:45)
[2021-04-28] MEDS ORDERED: MAGNESIUM CHLORIDE ER 64 MG TABLET.ER PO ONE (10:45)
[2021-04-28] MEDS ORDERED: IV NORMAL SALINE 50ML 50 ML ONE (10:51)
[2021-04-28] MEDS ORDERED: cefTRIAXone SODIUM 1 GM VIAL ONE (10:51)
[2021-04-28] MEDS ORDERED: CEPH500T PO (10:56)
--- NOTE | 2021-04-28 19:07 | EKG ---
[address] [address] Test Date: 2021-04-28 Test Time: 08:57:27 Pat Name: CURTIS ZAMUDIO Department: Room: Gender: F Pool Technician: FRIDA : 1945 Requested By: RUDI PRUETT Order Number: [id number] Reading MD: Measurements Intervals [place] Rate: 117 P: 34 VA: 156 QRS: -6 QRSD: 92 T: 6 QT: 342 QTc: 482 Interpretive Statements SINUS TACHYCARDIA INTERPOLATED VENTRICULAR PREMATURE COMPLEX(ES) LEFTWARD AXIS INCOMPLETE RIGHT BUNDLE BRANCH BLOCK T ABNORMALITY IN INFERIOR LEADS ABNORMAL ECG RI6.02 No previous ECG available for comparison
== END 2021-04-28 11:38 | disposition home or self-care (01) ==
LOC: ER 08:34
DX: N39.0 Urinary tract infection, site not specified (principal); R55 Syncope and collapse; E83.42 Hypomagnesemia; I10 Essential (primary) hypertension; E87.6 Hypokalemia; Z88.8 Allergy status to other drugs, medicaments and biological substances; Z90.710 Acquired absence of both cervix and uterus
CPT/HCPCS: 36415; 80053; 81001; 82553; 83605; 83690; 83735; 84484; 85025; 87086; 93005; 96361; 96365; 99284; J0696; J7030; 87077; 87186